=== PATIENT | female | born 1995 | race Hispanic/Latino ===

== ENCOUNTER 2017-07-17 08:05 | Observation (INO) | payer OTHER ==
[2017-07-17 08:12] VITALS: BMI 21.9
[2017-07-17] MEDS ORDERED: Sodium Chloride 0.9% 1,000 ML IV STA ×2 (09:09→12:32)
--- NOTE | 2017-07-17 09:26 | ED PDOC ---
HPI:Nausea, Vomiting, Diarrhea Time Seen by Provider: 07/17/17 08:35 Chief Complaint (Nursing): Abdominal Pain Chief Complaint (Provider): vomiting and diarrhea History Per: Patient History/Exam Limitations: no limitations Onset/Duration Of Symptoms: Days (last night 07/16/17) Current Symptoms Are (Timing): Still Present Quality Of Discomfort: Cramping Associated Symptoms: Vomiting (2 episodes non-bloody), Diarrhea (non-bloody). denies: Fever Additional Complaint(s): 22 year old female with a history of appendectomy and IBS presents to the ED complaining of vomiting and diarrhea onset midnight after dinner. Reports of two episodes of non-bloody vomiting and multiple episodes of non-bloody diarrhea with associated symptoms of cramp-like abdominal pain after eating sushi. Patient states her mother ate sushi too but she did not develop any symptoms. Denies fever or any other GI symptoms. PMD: Provider TBD Past Medical History Reviewed: Historical Data, Nursing Documentation, Vital Signs Vital Signs: Last Vital Signs Temp 97.8 F 07/17/17 08:12 Pulse 96 H 07/17/17 08:12 Resp 18 07/17/17 08:12 BP 121/58 L 07/17/17 08:12 Pulse Ox 100 07/17/17 08:12 - Medical History Other PMH: IBS - Surgical History Surgical History: Appendectomy - Family History Family History: States: Unknown Family Hx - Social History Current smoker - smoking cessation education provided: No Alcohol: None Drugs: Denies - Allergies Allergies/Adverse Reactions: Allergies Allergy/AdvReac Type Severity Reaction Status Date / Time Iodinated Contrast- Oral and Allergy RASH Verified 07/17/17 08:54 IV Dye iodine Allergy RASH Verified 07/17/17 08:54 Review of Systems ROS Statement: Except As Marked, All Systems Reviewed And Found Negative Constitutional: Negative for: Fever Gastrointestinal: Positive for: Vomiting (2 episodes non-bloody), Abdominal Pain (cramp-like), Diarrhea (multiple episodes non-bloody) Psych: Negative for: Suicidal ideation (homicidal ideation) Physical Exam - Reviewed Nursing Documentation Reviewed: Yes Vital Signs Reviewed: Yes - Physical Exam Appears: Positive for: Non-toxic, No Acute Distress, Uncomfortable Head Exam: Positive for: ATRAUMATIC, NORMAL INSPECTION, NORMOCEPHALIC Skin: Positive for: Normal Color, Warm, Dry Eye Exam: Positive for: EOMI, Normal appearance, PERRL ENT: Positive for: Normal ENT Inspection Neck: Positive for: Normal, Painless ROM, Supple. Negative for: Decreased ROM Cardiovascular/Chest: Positive for: Regular Rate, Rhythm. Negative for: Murmur Respiratory: Positive for: Normal Breath Sounds. Negative for: Decreased Breath Sounds, Accessory Muscle Use, Wheezing, Respiratory Distress Gastrointestinal/Abdominal: Positive for: Tenderness (generalized). Negative for: Guarding, Rebound Extremity: Positive for: Normal ROM. Negative for: Tenderness, Pedal Edema, Deformity Neurologic/Psych: Positive for: Alert, Oriented (x3). Negative for: Motor/ Sensory Deficits - Laboratory Results Result Diagrams: 07/17/17 09:37 07/17/17 09:37 - ECG O2 Sat by Pulse Oximetry: 100 (RA) Pulse Ox Interpretation: Normal - Progress Re-evaluation Time: 12:32 Condition: Unchanged Medical Decision Making Medical Decision Making: Time: 907 Initial Impression: Gastritis and Food poisoning Initial Plan: --Abdomen and Pelvis w/o PO or IV CONT [CT] --CMP --Lipase --ED urine --ED urine dipstick --CBC w/ differential --Morphine 2mg --Normal Saline 1000 mls/hr --Zofran 4mg --Urinalysis --Reevaluation Time: 1031 PROCEDURE: CT Abdomen and Pelvis without intravenous contrast FINDINGS: LOWER THORAX: Unremarkable. LIVER: Unremarkable. No gross lesion or ductal dilatation. GALLBLADDER AND BILE DUCTS: Unremarkable. PANCREAS: Unremarkable. No gross lesion or ductal dilatation. SPLEEN: Unremarkable. ADRENALS: Unremarkable. No mass. KIDNEYS AND URETERS: Unremarkable. No hydronephrosis. No solid mass. VASCULATURE: Unremarkable. No aortic aneurysm. BOWEL: Unremarkable. No obstruction. No gross mural thickening. APPENDIX: Unremarkable. Normal appendix. PERITONEUM: Unremarkable. No free fluid. No free air. LYMPH NODES: Unremarkable. No enlarged lymph nodes. BLADDER: Unremarkable. REPRODUCTIVE: Unremarkable. BONES: No acute fracture. OTHER FINDINGS: None. IMPRESSION: Unremarkable non contrast enhanced CT of the abdomen and pelvis. Scribe Attestation: Documented by Cheryl Salazar, acting as a scribe for Ashleigh Borrero MD Provider Scribe Attestation: All medical record entries made by the Scribe were at my direction and personally dictated by me. I have reviewed the chart and agree that the record accurately reflects my personal performance of the history, physical exam, medical decision making, and the department course for this patient. I have also personally directed, reviewed, and agree with the discharge instructions and disposition. Disposition - Clinical Impression Clinical Impression: Intractable abdominal pain, Gastroenteritis - Patient ED Disposition Is Patient to be Admitted: Yes - Disposition Disposition Time: 14:02 Condition: STABLE Forms: [employer] (Uzbek) - Pt Status Changed To: Hospital Disposition Of: Observation - POA Present On Arrival: None
--- NOTE | 2017-07-17 10:33 | CT ---
PROCEDURE: CT Abdomen and Pelvis without intravenous contrast HISTORY: Gen abd pain, v/d COMPARISON: None. TECHNIQUE: Technique. Contrast Dose: Radiation dose: Total exam DLP = Total exam DLP = mGy-cm. This CT exam was performed using one or more of the following dose reduction techniques: Automated exposure control, adjustment of the mA and/or kV according to patient size, and/or use of iterative reconstruction technique. FINDINGS: LOWER THORAX: Unremarkable. LIVER: Unremarkable. No gross lesion or ductal dilatation. GALLBLADDER AND BILE DUCTS: Unremarkable. PANCREAS: Unremarkable. No gross lesion or ductal dilatation. SPLEEN: Unremarkable. ADRENALS: Unremarkable. No mass. KIDNEYS AND URETERS: Unremarkable. No hydronephrosis. No solid mass. VASCULATURE: Unremarkable. No aortic aneurysm. BOWEL: Unremarkable. No obstruction. No gross mural thickening. APPENDIX: Unremarkable. Normal appendix. PERITONEUM: Unremarkable. No free fluid. No free air. LYMPH NODES: Unremarkable. No enlarged lymph nodes. BLADDER: Unremarkable. REPRODUCTIVE: Unremarkable. BONES: No acute fracture. OTHER FINDINGS: None. IMPRESSION: Unremarkable non contrast enhanced CT of the abdomen and pelvis.
[2017-07-17 10:35] LABS: BASO % 0.2 % (0.0-2.0); EOS % 0.1 % (0.0-4.0); HEMOGLOBIN 14.1 g/dL (12.0-16.0); LYMPH # 0.4 K/uL (1.0-4.3); LYMPH % 4.9 % (20.0-40.0); MEAN CELL VOLUME 91.4 fl (81.0-99.0); MEAN CORPUSCULAR HEMOGLOBIN 31.1 pg (27.0-31.0); MEAN CORPUSCULAR HGB CONC 34.1 g/dL (33.0-37.0); MEAN PLATELET VOLUME 8.6 fl (7.2-11.7); MONO # 0.3 K/uL (0.0-0.8); MONO % 4.1 % (0.0-10.0); NEUT # 7.7 K/uL (1.8-7.0); NEUT % 90.7 % (50.0-75.0); PLATELET COUNT 185 K/uL (130-400); RBC 4.54 Mil/uL (3.80-5.20); RED CELL DISTRIBUTION WIDTH 12.9 % (11.5-14.5); WHITE BLOOD COUNT 8.5 K/uL (4.8-10.8)
[2017-07-17 10:37] LABS: SQUAMOUS EPITHIAL 2 /hpf (0-5); URINE BILIRUBIN NEGATIVE (NEGATIVE); URINE BLOOD NEGATIVE (NEGATIVE); URINE CLARITY SLIGHTY-CLOUDY (Clear); URINE COLOR YELLOW (YELLOW); URINE GLUCOSE (UA) NEG (Normal); URINE LEUKOCYTE ESTERASE NEG Leu/uL (Negative); URINE PROTEIN NEGATIVE (NEGATIVE); URINE UROBILINOGEN 0.2-1.0 mg/dL (0.2-1.0)
[2017-07-17 10:42] LABS: ALB/GLOB RATIO 1.2 (1.0-2.1); ALBUMIN 4.4 g/dL (3.5-5.0); ALT/SGPT 33 U/L (9-52); AST/SGOT 28 U/L (14-36); BLOOD UREA NITROGEN 14 mg/dl (7-17); CALCIUM 9.9 mg/dL (8.4-10.2); GFR AFRICAN-AMERICAN > 60; GFR NON-AFRICAN AMERICAN > 60; LIPASE 112 U/L (23-300)
[2017-07-17 12:13] LABS: BANDS 3 % (0-2); EOSINOPHIL 1 % (0-7); LYMPHOCYTE 5 % (20-50); MONOCYTE 5 % (0-10); NEUTROPHIL 86 % (42-75); PLATELET ESTIMATE NORMAL (NORMAL); TOTAL CELLS COUNTED 100
[2017-07-17 12:14] LABS: HYPOCHROMIC SLIGHT
--- NOTE | 2017-07-17 15:07 | CP.PCM.HP ---
History of Present Illness - History of Present Illness History of Present Illness: 22 yo female with history of IBS came in because of severe upper abdominal pain which woke her up around 3am today associated with multiple episodes of nausea, vomiting and diarrhea since last night preceded with eating sushi. Her mother who ate the sushi with her was not affected. Upper abdominal pain was barely relieved with the 2mg Morphine given IV in the ER. Patient denied fever or chills. Also denied SOB or chest pain. Present on Admission - Present on Admission Any Indicators Present on Admission: No History of DVT/PE: No History of Uncontrolled Diabetes: No Urinary Catheter: No Decubitus Ulcer Present: No Review of Systems - Review of Systems All systems: reviewed and no additional remarkable complaints except (aside from those mentioned above, 12 point system review were negative by me) Past Patient History - Tetanus Immunizations Tetanus Immunization: Unknown - Past Social History Smoking Status: Never Smoked Alcohol: None Drugs: Denies - CARDIAC Hx Cardiac Disorders: No - PULMONARY Hx Respiratory Disorders: No - NEUROLOGICAL Hx Neurological Disorder: No - HEENT Hx Sinusitis: Yes - RENAL Hx Chronic Kidney Disease: No - ENDOCRINE/METABOLIC Hx Endocrine Disorders: No - HEMATOLOGICAL/ONCOLOGICAL Hx Blood Disorders: No - INTEGUMENTARY Hx Dermatological Problems: No - MUSCULOSKELETAL/RHEUMATOLOGICAL Hx Musculoskeletal Disorders: No - GASTROINTESTINAL Hx Irritable Bowel: Yes - GENITOURINARY/GYNECOLOGICAL Hx Genitourinary Disorders: Yes Other/Comment: right ovarian cyst - PSYCHIATRIC Hx Psychophysiologic Disorder: No Hx Substance Use: No - SURGICAL HISTORY Hx Appendectomy: Yes - ANESTHESIA Hx Anesthesia: Yes Hx Anesthesia Reactions: No Meds Allergies/Adverse Reactions: Allergies Allergy/AdvReac Type Severity Reaction Status Date / Time Iodinated Contrast- Oral and Allergy RASH Verified 07/17/17 08:54 IV Dye iodine Allergy RASH Verified 07/17/17 08:54 Physical Exam - Constitutional Appears: No Acute Distress - Head Exam Head Exam: ATRAUMATIC - Eye Exam Eye Exam: absent: Scleral icterus - ENT Exam ENT Exam: Mucous Membranes Moist - Neck Exam Neck exam: Negative for: Meningismus - Respiratory Exam Respiratory Exam: absent: Rales, Rhonchi, Wheezes, Respiratory Distress - Cardiovascular Exam Cardiovascular Exam: REGULAR RHYTHM, +S1, +S2 - GI/Abdominal Exam GI & Abdominal Exam: Soft. absent: Tenderness - Extremities Exam Extremities exam: Negative for: calf tenderness, pedal edema - Back Exam Back exam: absent: tenderness - Neurological Exam Neurological exam: Alert, Oriented x3 - Psychiatric Exam Psychiatric exam: Normal Affect - Skin Skin Exam: Dry, Intact Results - Vital Signs Recent Vital Signs: Last Vital Signs Temp 99.1 F 07/17/17 14:53 Pulse 96 H 07/17/17 08:12 Resp 18 07/17/17 08:12 BP 121/58 L 07/17/17 08:12 Pulse Ox 100 07/17/17 14:11 - Labs Result Diagrams: 07/17/17 09:37 07/17/17 09:37 Labs: Laboratory Results - last 24 hr 07/17/17 07/17/17 07/17/17 09:37 09:37 10:00 WBC 8.5 RBC 4.54 Hgb 14.1 Hct 41.5 MCV 91.4 MCH 31.1 H MCHC 34.1 RDW 12.9 Plt Count 185 MPV 8.6 Neut % (Auto) 90.7 H Lymph % (Auto) 4.9 L [place] % (Auto) 4.1 Eos % (Auto) 0.1 Baso % (Auto) 0.2 Neut # (Auto) 7.7 H Lymph # (Auto) 0.4 L [place] # (Auto) 0.3 Eos # (Auto) 0.0 Baso # (Auto) 0.0 Neutrophils % (Manual) 86 H Band Neutrophils % 3 H Lymphocytes % (Manual) 5 L Monocytes % (Manual) 5 Eosinophils % (Manual) 1 Platelet Estimate Normal Hypochromasia (manual) Slight Sodium 140 Potassium 4.1 Chloride 104 Carbon Dioxide 20 L Anion Gap 20 BUN 14 Creatinine 0.8 Est GFR ( Amer) > 60 Est GFR (Non-Af Amer) > 60 Random Glucose 104 Calcium 9.9 Total Bilirubin 0.8 AST 28 ALT 33 Alkaline Phosphatase 56 Total Protein 8.1 Albumin 4.4 Globulin 3.7 Albumin/Globulin Ratio 1.2 Lipase 112 Urine Color Yellow Urine Clarity Slighty-cloudy Urine pH 7.0 Ur Specific [place] 1.017 Urine Protein Negative Urine Glucose (UA) Neg Urine Ketones Trace Urine Blood Negative Urine Nitrate Negative Urine Bilirubin Negative Urine Urobilinogen 0.2-1.0 Ur Leukocyte Esterase Neg Urine RBC (Auto) < 1 Urine Microscopic WBC < 1 Ur Squamous Epith Cells 2 Assessment & Plan - Assessment and Plan (Free Text) Assessment: 22 yo female with history of IBS came in because of severe upper abdominal pain which woke her up around 3am today associated with multiple episodes of nausea, vomiting and diarrhea since last night preceded with eating sushi. Her mother who ate the sushi with her was not affected. Upper abdominal pain was barely relieved with the 2mg Morphine given IV in the ER. Patient denied fever or chills. 1. Intractable Abdominal Pain place on observation increase dose of Morphine to 4mg IV q 4hrs prn CT scan of abdomen: unremarkable 2. Gastroenteritis keep NPO except for ice chips continue IV hydration with NSS 150cc/hr Reglan 5mg IV q 4hrs prn for nausea/vomiting repeat CBC, BMP in am
[2017-07-17] MEDS ORDERED: Morphine 4 MG/ML VIAL IVP PRN (15:19)
[2017-07-17] MEDS: Sodium Chloride 0.9% 1,000 ML IV SCH ×2 (15:55→22:21)
--- NOTE | 2017-07-17 17:50 | CP.PCM.CON ---
History of Present Illness - History of Present Illness History of Present Illness: 22 yo female generally well admitted with severe abdominal pain, diarrhea, and N and V. Yesterday ate sushi for dinner and had a meat taco for lunch. Generally well though did have salmonella GI infection in [place] about 3 years Ago. Her mother with whom she had dinner feels well. Her boyfriend with whom she had the taco is not feeling well though he attributes it to the alcohol ingestion. H/o milk intolerance as infant. Past h/o IBS though has this has never resulted in hospitalization. Review of Systems - Constitutional Constitutional: absent: Chills - EENT Eyes: absent: Change in Vision Ears: absent: Abnormal Hearing Nose/Mouth/Throat: absent: Epistaxis - Cardiovascular Cardiovascular: absent: Chest Pain - Respiratory Respiratory: absent: Dyspnea - Gastrointestinal Gastrointestinal: As Per HPI - Genitourinary Genitourinary: absent: Change in Urinary Stream - Musculoskeletal Musculoskeletal: absent: Arthralgias Past Patient History - Tetanus Immunizations Tetanus Immunization: Unknown - Past Social History Smoking Status: Never Smoked - CARDIAC Hx Cardiac Disorders: No - PULMONARY Hx Respiratory Disorders: No - NEUROLOGICAL Hx Neurological Disorder: No - HEENT Hx HEENT Problems: Yes Hx Sinusitis: Yes Other/Comment: Chronic sinusitis - RENAL Hx Chronic Kidney Disease: No - ENDOCRINE/METABOLIC Hx Endocrine Disorders: No - HEMATOLOGICAL/ONCOLOGICAL Hx Blood Disorders: No - INTEGUMENTARY Hx Dermatological Problems: No - MUSCULOSKELETAL/RHEUMATOLOGICAL Hx Musculoskeletal Disorders: No Hx Falls: No - GASTROINTESTINAL Hx Gastrointestinal Disorders: Yes Hx Diarrhea: Yes Hx Irritable Bowel: Yes Other/Comment: Salmonella poisoning - GENITOURINARY/GYNECOLOGICAL Hx Genitourinary Disorders: Yes Other/Comment: right ovarian cyst - PSYCHIATRIC Hx Psychophysiologic Disorder: No Hx Substance Use: No - SURGICAL HISTORY Hx Surgeries: Yes Hx Appendectomy: Yes (2005) Other/Comment: Sinus surgery x2 - ANESTHESIA Hx Anesthesia: Yes Hx Anesthesia Reactions: No Hx Malignant Hyperthermia: No Meds Allergies/Adverse Reactions: Allergies Allergy/AdvReac Type Severity Reaction Status Date / Time Iodinated Contrast- Oral and Allergy RASH Verified 07/17/17 08:54 IV Dye iodine Allergy RASH Verified 07/17/17 08:54 lactose Allergy DIARRHEA Verified 07/17/17 16:52 - Medications Medications: Current Medications Sodium Chloride (Sodium Chloride 0.9%) 1,000 mls @ 150 mls/hr IV .Q6H40M HELEN Stop: 07/18/17 15:20 Last Admin: 07/17/17 15:55 Dose: 150 mls/hr Morphine Sulfate (Morphine) 4 mg IVP Q4 PRN PRN Reason: Pain, moderate (4-7) Ondansetron HCl (Zofran Inj) 4 mg IVP Q4 PRN PRN Reason: Nausea/Vomiting Physical Exam - Head Exam Head Exam: ATRAUMATIC - Eye Exam Eye Exam: Normal appearance - ENT Exam ENT Exam: Mucous Membranes Moist - Neck Exam Neck exam: Positive for: Normal Inspection - Respiratory Exam Respiratory Exam: Clear to Auscultation Bilateral - Cardiovascular Exam Cardiovascular Exam: REGULAR RHYTHM, +S1, +S2 - GI/Abdominal Exam GI & Abdominal Exam: Normal Bowel Sounds, Soft, Tenderness Additional comments: generalized abdominal tenderness. Results - Vital Signs Recent Vital Signs: Last Vital Signs Temp 99.2 F 07/17/17 16:28 Pulse 96 H 07/17/17 08:12 Resp 18 07/17/17 16:28 BP 117/74 07/17/17 16:28 Pulse Ox 100 07/17/17 16:51 - Labs Result Diagrams: 07/17/17 09:37 07/17/17 09:37 Labs: Laboratory Results - last 24 hr 07/17/17 07/17/17 07/17/17 09:37 09:37 10:00 WBC 8.5 RBC 4.54 Hgb 14.1 Hct 41.5 MCV 91.4 MCH 31.1 H MCHC 34.1 RDW 12.9 Plt Count 185 MPV 8.6 Neut % (Auto) 90.7 H Lymph % (Auto) 4.9 L [place] % (Auto) 4.1 Eos % (Auto) 0.1 Baso % (Auto) 0.2 Neut # (Auto) 7.7 H Lymph # (Auto) 0.4 L [place] # (Auto) 0.3 Eos # (Auto) 0.0 Baso # (Auto) 0.0 Neutrophils % (Manual) 86 H Band Neutrophils % 3 H Lymphocytes % (Manual) 5 L Monocytes % (Manual) 5 Eosinophils % (Manual) 1 Platelet Estimate Normal Hypochromasia (manual) Slight Sodium 140 Potassium 4.1 Chloride 104 Carbon Dioxide 20 L Anion Gap 20 BUN 14 Creatinine 0.8 Est GFR ( Amer) > 60 Est GFR (Non-Af Amer) > 60 Random Glucose 104 Calcium 9.9 Total Bilirubin 0.8 AST 28 ALT 33 Alkaline Phosphatase 56 Total Protein 8.1 Albumin 4.4 Globulin 3.7 Albumin/Globulin Ratio 1.2 Lipase 112 Urine Color Yellow Urine Clarity Slighty-cloudy Urine pH 7.0 Ur Specific [place] 1.017 Urine Protein Negative Urine Glucose (UA) Neg Urine Ketones Trace Urine Blood Negative Urine Nitrate Negative Urine Bilirubin Negative Urine Urobilinogen 0.2-1.0 Ur Leukocyte Esterase Neg Urine RBC (Auto) < 1 Urine Microscopic WBC < 1 Ur Squamous Epith Cells 2 Assessment & Plan (1) Gastroenteritis Assessment and Plan: Sx most c/w gastroenteritis. Could be viral or bacterial or due to toxin. Will hold off abx for now. IV fluids and adequate analgesia. Labs and stool studies ordered. Advanced diet to clears Status: Acute
[2017-07-18] MEDS: Sodium Chloride 0.9% 1,000 ML IV SCH (05:24)
[2017-07-18 06:50] LABS: BASO % 0.2 % (0.0-2.0); EOS % 0.6 % (0.0-4.0); HEMOGLOBIN 12.2 g/dL (12.0-16.0); LYMPH # 0.7 K/uL (1.0-4.3); LYMPH % 18.7 % (20.0-40.0); MEAN CELL VOLUME 92.2 fl (81.0-99.0); MEAN CORPUSCULAR HEMOGLOBIN 31.3 pg (27.0-31.0); MEAN CORPUSCULAR HGB CONC 33.9 g/dL (33.0-37.0); MEAN PLATELET VOLUME 8.5 fl (7.2-11.7); MONO # 0.3 K/uL (0.0-0.8); MONO % 6.8 % (0.0-10.0); NEUT # 2.9 K/uL (1.8-7.0); NEUT % 73.7 % (50.0-75.0); RBC 3.91 Mil/uL (3.80-5.20); RED CELL DISTRIBUTION WIDTH 12.4 % (11.5-14.5); WHITE BLOOD COUNT 3.9 K/uL (4.8-10.8)
[2017-07-18 06:59] LABS: ALBUMIN 2.9 g/dL (3.5-5.0); ALT/SGPT 37 U/L (9-52); AST/SGOT 18 U/L (14-36); BLOOD UREA NITROGEN 6 mg/dl (7-17); CALCIUM 7.4 mg/dL (8.4-10.2); GFR AFRICAN-AMERICAN > 60; GFR NON-AFRICAN AMERICAN > 60
[2017-07-18] MEDS ORDERED: Potassium Chl 20 mEq in NS 1,000 ML IV SCH (08:09)
[2017-07-18 09:21] VITALS: BP 107/71; PULSE 73; RESP 18; TEMP 97.6; O2SAT 99
--- NOTE | 2017-07-18 11:27 | CP.PCM.DIS ---
Provider - Provider Date of Admission: 07/17/17 14:10 Attending physician: Nic Dexter MD Time Spent in preparation of Discharge (in minutes): 30 Hospital Course - Lab Results Lab Results: Most Recent Lab Values WBC 3.9 K/uL (4.8-10.8) L D 07/18/17 05:50 RBC 3.91 Mil/uL (3.80-5.20) 07/18/17 05:50 Hgb 12.2 g/dL (12.0-16.0) 07/18/17 05:50 Hct 36.1 % (34.0-47.0) 07/18/17 05:50 MCV 92.2 fl (81.0-99.0) 07/18/17 05:50 MCH 31.3 pg (27.0-31.0) H 07/18/17 05:50 MCHC 33.9 g/dL (33.0-37.0) 07/18/17 05:50 RDW 12.4 % (11.5-14.5) 07/18/17 05:50 Plt Count 136 K/uL (130-400) 07/18/17 05:50 MPV 8.5 fl (7.2-11.7) 07/18/17 05:50 Neut % (Auto) 73.7 % (50.0-75.0) 07/18/17 05:50 Lymph % (Auto) 18.7 % (20.0-40.0) L 07/18/17 05:50 [place] % (Auto) 6.8 % (0.0-10.0) 07/18/17 05:50 Eos % (Auto) 0.6 % (0.0-4.0) 07/18/17 05:50 Baso % (Auto) 0.2 % (0.0-2.0) 07/18/17 05:50 Neut # (Auto) 2.9 K/uL (1.8-7.0) 07/18/17 05:50 Lymph # (Auto) 0.7 K/uL (1.0-4.3) L 07/18/17 05:50 [place] # (Auto) 0.3 K/uL (0.0-0.8) 07/18/17 05:50 Eos # (Auto) 0.0 K/uL (0.0-0.7) 07/18/17 05:50 Baso # (Auto) 0.0 K/uL (0.0-0.2) 07/18/17 05:50 Neutrophils % (Manual) 86 % (42-75) H 07/17/17 09:37 Band Neutrophils % 3 % (0-2) H 07/17/17 09:37 Lymphocytes % (Manual) 5 % (20-50) L 07/17/17 09:37 Monocytes % (Manual) 5 % (0-10) 07/17/17 09:37 Eosinophils % (Manual) 1 % (0-7) 07/17/17 09:37 Platelet Estimate Normal (NORMAL) 07/17/17 09:37 Hypochromasia (manual) Slight 07/17/17 09:37 Sodium 141 mmol/l (132-148) 07/18/17 05:50 Potassium 3.3 MMOL/L (3.6-5.0) L 07/18/17 05:50 Chloride 110 mmol/L (98-107) H 07/18/17 05:50 Carbon Dioxide 17 mmol/L (22-30) L 07/18/17 05:50 Anion Gap 17 (10-20) 07/18/17 05:50 BUN 6 mg/dl (7-17) L 07/18/17 05:50 Creatinine 0.7 mg/dl (0.7-1.2) 07/18/17 05:50 Est GFR ( Amer) > 60 07/18/17 05:50 Est GFR (Non-Af Amer) > 60 07/18/17 05:50 Random Glucose 96 mg/dL (65-105) 07/18/17 05:50 Calcium 7.4 mg/dL (8.4-10.2) L 07/18/17 05:50 Total Bilirubin 0.4 mg/dl (0.2-1.3) 07/18/17 05:50 AST 18 U/L (14-36) 07/18/17 05:50 ALT 37 U/L (9-52) 07/18/17 05:50 Alkaline Phosphatase 36 U/L (38-126) L D 07/18/17 05:50 Total Protein 5.9 G/DL (6.3-8.2) L 07/18/17 05:50 Albumin 2.9 g/dL (3.5-5.0) L D 07/18/17 05:50 Globulin 2.9 gm/dL (2.2-3.9) 07/18/17 05:50 Albumin/Globulin Ratio 1.0 (1.0-2.1) 07/18/17 05:50 Lipase 112 U/L (23-300) 07/17/17 09:37 Urine Color Yellow (YELLOW) 07/17/17 10:00 Urine Clarity Slighty-cloudy (Clear) 07/17/17 10:00 Urine pH 7.0 (5.0-8.0) 07/17/17 10:00 Ur Specific [place] 1.017 (1.003-1.030) 07/17/17 10:00 Urine Protein Negative mg/dL (NEGATIVE) 07/17/17 10:00 Urine Glucose (UA) Neg mg/dL (Normal) 07/17/17 10:00 Urine Ketones Trace mg/dL (NEGATIVE) 07/17/17 10:00 Urine Blood Negative (NEGATIVE) 07/17/17 10:00 Urine Nitrate Negative (NEGATIVE) 07/17/17 10:00 Urine Bilirubin Negative (NEGATIVE) 07/17/17 10:00 Urine Urobilinogen 0.2-1.0 mg/dL (0.2-1.0) 07/17/17 10:00 Ur Leukocyte Esterase Neg [place]/uL (Negative) 07/17/17 10:00 Urine RBC (Auto) < 1 /hpf (0-3) 07/17/17 10:00 Urine Microscopic WBC < 1 /hpf (0-5) 07/17/17 10:00 Ur Squamous Epith Cells 2 /hpf (0-5) 07/17/17 10:00 C. difficile Ag & Toxin Negative (NEGATIVE) 07/17/17 17:30 - Hospital Course Hospital Course: 22 yo female with history of IBS came in because of severe upper abdominal pain which woke her up around 3am today associated with multiple episodes of nausea, vomiting and diarrhea since last night preceded with eating sushi. Her mother who ate the sushi with her was not affected. Upper abdominal pain was barely relieved with the 2mg Morphine given IV in the ER. Patient denied fever or chills. Gastroenteritis CT scan of abdomen: unremarkable GI Consult appreciated tolerating diet stable for discharge home given IV hydration with NSS 150cc/hr given Reglan 5mg IV q 4hrs prn for nausea/vomiting follow up PCP in one week Discharge Exam - Head Exam Head Exam: ATRAUMATIC, NORMOCEPHALIC - Eye Exam Eye Exam: EOMI, Normal appearance, PERRL Pupil Exam: NORMAL ACCOMODATION - ENT Exam ENT Exam: Mucous Membranes Moist, Normal Oropharynx - Neck Exam Neck exam: Full Rom, Normal Inspection - Respiratory Exam Respiratory Exam: Clear to PA & Lateral, NORMAL BREATHING PATTERN - Cardiovascular Exam Cardiovascular Exam: RRR, +S1, +S2 - GI/Abdominal Exam GI & Abdominal Exam: Normal Bowel Sounds, Soft. absent: Mass, Tenderness - Extremities Exam Extremities exam: normal capillary refill, pedal pulses present - Back Exam Back exam: absent: CVA tenderness (L), CVA tenderness (R) - Neurological Exam Neurological exam: Alert, Oriented x3 - Psychiatric Exam Psychiatric exam: Normal Affect, Normal Mood - Skin Skin Exam: Dry, Warm Discharge Plan - Follow Up Plan Condition: STABLE Disposition: HOME/ ROUTINE
--- NOTE | 2017-07-18 11:42 | CP.PCM.PN ---
Subjective - Date & Time of Evaluation Date of Evaluation: 07/18/17 Time of Evaluation: 10:30 - Subjective Subjective: Feeling less abdominal pain. Had flushing last night, now feels better. Stools are still liquid. Objective - Vital Signs/Intake and Output Vital Signs (last 24 hours): Temp Pulse Resp BP Pulse Ox 97.6 F 73 18 107/71 99 07/18/17 09:00 07/18/17 09:00 07/18/17 09:00 07/18/17 09:00 07/18/17 09:00 - Medications Medications: Current Medications Dicyclomine HCl (Bentyl) 10 mg PO Q6 PRN PRN Reason: GI distress Potassium Chloride/Sodium Chloride (Potassium Chl 20 Meq In Ns) 1,000 mls @ 125 mls/hr IV .Q8H HELEN Stop: 07/19/17 08:08 Last Admin: 07/18/17 10:58 Dose: 125 mls/hr Morphine Sulfate (Morphine) 4 mg IVP Q4 PRN PRN Reason: Pain, moderate (4-7) Ondansetron HCl (Zofran Inj) 4 mg IVP Q4 PRN PRN Reason: Nausea/Vomiting - Labs Labs: 07/18/17 05:50 07/18/17 05:50 - Head Exam Head Exam: ATRAUMATIC - Eye Exam Eye Exam: Normal appearance - ENT Exam ENT Exam: Mucous Membranes Moist - Neck Exam Neck Exam: Full ROM - Respiratory Exam Respiratory Exam: NORMAL BREATHING PATTERN - Cardiovascular Exam Cardiovascular Exam: REGULAR RHYTHM - GI/Abdominal Exam GI & Abdominal Exam: Soft, Tenderness, Normal Bowel Sounds Additional comments: periumbillical and lower abdominal tenderness. No guarding or rebound. Assessment and Plan (1) Gastroenteritis Assessment & Plan: Had fever last night though now feels better and has an apetite. C diff negative. Will advance diet and patient can go home if she is able to tolerate diet. Status: Acute
== END 2017-07-18 15:30 | disposition home or self-care (01) ==
LOC: H.ER 08:05 → H.ERHOLD 14:10 → H.MEDSURG1 15:45
DX: K52.9 Noninfective gastroenteritis and colitis, unspecified (principal); J32.9 Chronic sinusitis, unspecified; Z86.19 Personal history of other infectious and parasitic diseases; Z90.49 Acquired absence of other specified parts of digestive tract; Z91.041 Radiographic dye allergy status
CPT/HCPCS: 36415; 74176; 80053; 81003; 81025; 83690; 83993; 85025; 86140; 87045; 87230; 96360; 96372; 99285; G0378; J0500; J1885; J2270; J2765; J7040